=== PATIENT | female | born 1980 | race Caucasian/White ===

== ENCOUNTER → 2018-06-18 | Outpatient (CLI) | payer OTHER | LOC: M.ULTRA 13:00 | DX: R10.9 Unspecified abdominal pain (principal); Z87.442 Personal history of urinary calculi ==

== ENCOUNTER → 2018-07-01 | Outpatient (CLI) | payer OTHER | LOC: M.CT 09:26 | DX: N20.0 Calculus of kidney (principal); K80.20 Calculus of gallbladder without cholecystitis without obstruction; Z90.49 Acquired absence of other specified parts of digestive tract; Z87.442 Personal history of urinary calculi ==

== ENCOUNTER 2018-07-11 17:29 | Emergency (ER) | payer OTHER ==
[~2018-07-11] VITALS: Ht 162.6 cm; Wt 95.3 kg
[2018-07-11] MEDS ORDERED: CELEBREX 200 M200 M1 PO (17:38)
[2018-07-11] MEDS ORDERED: NORCO 5-325 TA1 EACH PO (18:29)
[2018-07-11] MEDS ORDERED: IBUPROFEN 800800 M1 PO (18:29)
[2018-07-11 18:38] VITALS: BP 134/96
== END 2018-07-11 18:38 | disposition home or self-care (01) ==
LOC: M.ERS 17:29
DX: S62.625A Displaced fracture of middle phalanx of left ring finger, initial encounter for closed fracture (principal); Z90.49 Acquired absence of other specified parts of digestive tract; Z87.442 Personal history of urinary calculi; W18.39XA Other fall on same level, initial encounter; Y92.89 Other specified places as the place of occurrence of the external cause; Y93.89 Activity, other specified; Y99.8 Other external cause status